=== PATIENT | female | born 1985 | race Caucasian/White ===

== ENCOUNTER 2019-03-20 00:49 | Emergency (ER) | payer SELFPAY | END 2019-03-20 09:48 | disposition home or self-care (01) | LOC: ERS 00:49 | DX: F10.129 Alcohol abuse with intoxication, unspecified (principal); Y90.8 Blood alcohol level of 240 mg/100 ml or more | CPT/HCPCS: 36415; 80307; 93005; 96360; 96361 ==

== ENCOUNTER 2019-09-13 11:53 | Emergency (ER) | payer SELFPAY ==
[2019-09-13 12:36] LABS: #Lymphocytes 1.1 thou/uL (1.20-3.40); #Monocytes 0.4 thou/uL (0.11-0.59); #Neutrophils 8.3 thou/uL (1.40-6.50); %Basophils 0.3 % (0.0-1.0); %Eosinophils 0.3 % (0.0-10.0); %Lymphocytes 11.2 % (21.0-51.0); %Monocytes 3.9 % (0.0-10.0); %Neutrophils 84.4 % (42.0-75.0); Hemoglobin 13.2 g/dL (12.0-16.0); Mean Corpuscular HGB CONC 33.3 g/dL (32.0-36.0); Mean Corpuscular Hemoglobin 32.1 pg (27.0-31.0); Mean Corpuscular Volume 96.2 fL (78.0-98.0); Mean Platelet Volume 8.8 fL (7.4-10.4); Platelet Count 267 thou/uL (130-400); RBC Distribution Width 10.9 % (11.5-14.5); Red Blood Cell (RBC) Count 4.11 mill/uL (4.20-5.40); White Blood Cell (WBC) Count 9.9 thou/uL (4.8-10.8)
[2019-09-13] MEDS ORDERED: Ondansetron PF 4 MG/2 ML Vial ONE (12:39)
[2019-09-13 12:48] LABS: BHCG - Serum Negative (NEGATIVE); Pregs Control Background? CLEAR/WHITE (CLR/WHITE); Pregs Control Bar Appear? YES (CONTROL BAR)
[2019-09-13 12:59] LABS: ALT (SGPT) 23 U/L (8-55); AST (SGOT) 24 U/L (5-34); Albumin 4.5 g/dL (3.5-5.0); Alkaline Phosphatase 79 U/L (40-110); Anion Gap 14 mmol/L (10-20); BUN (Urea Nitrogen) 8 mg/dL (7.0-18.7); Bilirubin, Total 0.4 mg/dL (0.2-1.2); Calc. Creatinine Clearance 0 mL/min (70-130); Calcium 9.9 mg/dL (7.8-10.44); Carbon Dioxide 26 mmol/L (22-29); Chloride 102 mmol/L (98-107); Estimated GFR-MDRD Greater than 90; Globulin 3.2 g/dL (2.4-3.5); Glucose 82 mg/dL (70-105); Lipase 7 U/L (8-78); Potassium 3.8 mmol/L (3.5-5.1); Protein, Total 7.7 g/dL (6.0-8.3); Sodium 138 mmol/L (136-145)
--- NOTE | 2019-09-13 13:16 | RAD ---
Exam: Chest one view HISTORY:Nausea and vomiting. Comparison: None FINDINGS: Cardiac silhouette: Normal Aorta: Unremarkable Pulmonary vessels: Normal Costophrenic angles: Clear LUNGS: No masses or consolidation. Pneumothorax: None Osseous abnormalities: None IMPRESSION: No acute cardiopulmonary process.
[2019-09-13] MEDS ORDERED: Haloperidol Lactate 5 MG/ML VIAL ONE (13:17)
[2019-09-13] MEDS ORDERED: diphenhydrAMINE 50 MG/ML VIAL ONE (13:17)
== END 2019-09-13 13:54 ==
LOC: ERS 11:53
DX: K22.6 Gastro-esophageal laceration-hemorrhage syndrome (principal); R11.2 Nausea with vomiting, unspecified
CPT/HCPCS: 71045; 80053; 83690; 84703; 85025; 93005; 96361; 96374; 96375; J1200; J1630; J2405

== ENCOUNTER 2020-12-10 14:07 | Emergency (ER) | payer SELFPAY | END 2020-12-10 15:44 | disposition home or self-care (01) | LOC: ERS 14:07 | DX: L30.9 Dermatitis, unspecified (principal) | CPT/HCPCS: 99282 ==

== ENCOUNTER 2020-12-31 17:26 | Emergency (ER) | payer SELFPAY ==
[2020-12-31] MEDS ORDERED: Dexamethasone 10 MG/ML VIAL ONE (20:01)
== END 2020-12-31 20:10 | disposition home or self-care (01) ==
LOC: ERS 17:26
DX: L25.9 Unspecified contact dermatitis, unspecified cause (principal)
CPT/HCPCS: 96372; 99283; J1100

== ENCOUNTER 2021-08-29 10:02 | Emergency (ER) | payer SELFPAY ==
[2021-08-29] MEDS ORDERED: methylPREDNISolone Sod Succ/PF 125 MG/2 ML VIAL ONE (10:21)
[2021-08-29] MEDS ORDERED: Famotidine/PF 20 mg/2ml Vial ONE (10:21)
[2021-08-29] MEDS ORDERED: Ketorolac Tromethamine 30 MG/ML VIAL ONE (10:22)
== END 2021-08-29 11:22 | disposition home or self-care (01) ==
LOC: ERS 10:02
DX: L50.0 Allergic urticaria (principal)
CPT/HCPCS: 96374; 96375; J1885; J2930; S0028